=== PATIENT | female | born 1960 | race Caucasian/White ===

== ENCOUNTER 2018-12-12 10:30 | Day surgery (SDC) | payer BC ==
--- OUTSIDE RECORDS SUMMARY | 2018-12-12 10:34 | XMS REPORT | Clinical Summary ---
:1960 Author Organization [facility] Address [address] [place] [address] Care Team Providers Name Role Phone Luisa Gilliam MD Primary Care Provider Unavailable Allergies Active Allergy Reactions Severity Noted Date Comments Codeine Anxiety, Itching, Palpitations, High Shortness Of Breath Iodine Anaphylaxis, GI Intolerance, High Hives, Shortness Of Breath Latex, Natural Rubber Dermatitis, Itching, Rash, Low Swelling Metformin GI Intolerance 09/29/2017 Shellfish Derived Anaphylaxis, Diarrhea, GI High Intolerance, Hives, Shortness Of Breath, Swelling Medications Medication Sig Dispensed Refills Start End Date Status Date FLUTICASONE 2 sprays once a 0 Active PROPIONATE (FLONASE day ALLERGY RELIEF NASL) cetirizine (ZyrTEC) 1 tablet once a 0 Active 10 MG tablet day blood-glucose meter Use as directed 1 each 0 Active misc 8 lancets 33 gauge misc Test blood 200 each 1 Active sugar twice a 8 day blood sugar Test blood 200 strip 1 Active diagnostic strips sugar twice a 8 (glucose blood) strip day test strips atorvastatin TAKE 1 90 tablet 1 Active (LIPITOR) 40 MG TABLET(20 MG) 8 tabletIndications: BY MOUTH DAILY Mixed hyperlipidemia dulaglutide INJECT 1 12 Syringe 0 Active (TRULICITY) 1.5 SYRINGE OF 1.5 9 mg/0.5 mL pen MG UNDER THE injectorIndications: SKIN EVERY Type 2 diabetes WEDNESDAY. mellitus with complication, without long-term current use of insulin (HCC) glimepiride (AMARYL) TAKE 1 TABLET(2 180 tablet 0 Active 2 MG MG) BY MOUTH 9 tabletIndications: TWICE DAILY Type 2 diabetes WITH MEALS mellitus with complication, without long-term current use of insulin ([facility]) DUREZOL 0.05 % drops 1 drop twice a 0 09/29/19 Discontinued day 8 19 atorvastatin Take 1 tablet 30 tablet 1 12/12/19 Discontinued (LIPITOR) 20 MG (20 mg total) 8 18 tabletIndications: by mouth daily. Mixed hyperlipidemia glimepiride (AMARYL) Take 1 tablet 60 tablet 1 12/12/19 Discontinued 2 MG (2 mg total) by 8 18 tabletIndications: mouth 2 (two) Type 2 diabetes times a day mellitus with with meals. hyperglycemia, without long-term current use of insulin ([facility]), Hyperglycemia dulaglutide 1.5 Inject SQ 4 Syringe 1 01/04/20 Discontinued mg/0.5 mL pen weekly every 8 18 injectorIndications: Wednesday Type 2 diabetes mellitus with hyperglycemia, without long-term current use of insulin ([facility]) docusate sodium Take 1 capsule 0 01/04/20 Discontinued (COLACE) 100 MG (100 mg total) 8 capsuleIndications: by mouth 2 Drug-induced (two) times a constipation day. Use 2 tab daily polycarbophil Take 1 tablet 0 09/29/19 Discontinued (FIBERCON) 625 mg (625 mg total) 8 tabletIndications: by mouth daily. Drug-induced Follow constipation instruction on box atorvastatin TAKE 1 90 tablet 0 01/04/20 Discontinued (LIPITOR) 20 MG TABLET(20 MG) 8 18 tabletIndications: BY MOUTH DAILY Mixed hyperlipidemia glimepiride (AMARYL) TAKE 1 TABLET(2 180 tablet 0 03/09/20 Discontinued 2 MG MG) BY MOUTH 8 18 tabletIndications: TWICE DAILY Type 2 diabetes WITH MEALS mellitus with hyperglycemia, without long-term current use of insulin ([facility]), Hyperglycemia dulaglutide 1.5 Inject SQ 12 Syringe 0 04/08/20 Discontinued mg/0.5 mL pen weekly every 8 18 injectorIndications: Wednesday Type 2 diabetes mellitus with hyperglycemia, without long-term current use of insulin ([facility]) meloxicam (MOBIC) 7.5 1 tab twice /d 28 tablet 0 05/17/20 Discontinued mg tabletIndications: for 14 days 8 18 Sternoclavicular joint pain, right atorvastatin TAKE 1 90 tablet 0 05/17/20 Discontinued (LIPITOR) 20 MG TABLET(20 MG) 8 18 tabletIndications: BY MOUTH DAILY Mixed hyperlipidemia glimepiride (AMARYL) TAKE 1 TABLET(2 180 tablet 0 09/29/19 Discontinued 2 MG MG) BY MOUTH 8 19 tabletIndications: TWICE DAILY Type 2 diabetes WITH MEALS mellitus with hyperglycemia, without long-term current use of insulin ([facility]), Hyperglycemia TRULICITY 1.5 mg/0.5 INJECT 1 6 mL 0 07/06/19 Discontinued mL pen SYRINGE EVERY 8 injectorIndications: Type 2 diabetes mellitus with hyperglycemia, without long-term current use of insulin ([facility]) dulaglutide INJECT 1 4 Syringe 1 08/20/19 Discontinued (TRULICITY) 1.5 SYRINGE EVERY 9 19 mg/0.5 mL pen injectorIndications: Type 2 diabetes mellitus with hyperglycemia, without long-term current use of insulin ([facility]) dulaglutide INJECT 1 2 mL 0 08/31/19 Discontinued (TRULICITY) 1.5 SYRINGE OF 1.5 9 19 mg/0.5 mL pen MG UNDER THE injectorIndications: SKIN EVERY Type 2 diabetes WEDNESDAY. mellitus with hyperglycemia, without long-term current use of insulin ([facility]) dulaglutide INJECT 1 4 Syringe 0 09/29/19 Discontinued (TRULICITY) 1.5 SYRINGE OF 1.5 9 19 mg/0.5 mL pen MG UNDER THE injectorIndications: SKIN EVERY Type 2 diabetes WEDNESDAY. mellitus with hyperglycemia, without long-term current use of insulin ([facility]) glimepiride (AMARYL) TAKE 1 TABLET(2 180 tablet 0 11/18/19 Discontinued 2 MG MG) BY MOUTH 9 19 tabletIndications: TWICE DAILY Type 2 diabetes WITH MEALS mellitus with complication, without long-term current use of insulin ([facility]) montelukast Take 1 tablet 30 tablet 2 10/29/19 (SINGULAIR) 10 mg (10 mg total) 9 19 tabletIndications: by mouth Chronic seasonal nightly for 30 allergic rhinitis due days. to pollen predniSONE Take 1 tablet 5 tablet 0 10/04/19 (DELTASONE) 20 mg (20 mg total) 9 19 tablet by mouth daily for 5 days. amoxicillin (AMOXIL) Take 1 tablet 14 tablet 0 10/06/19 500 MG tablet (500 mg total) 9 19 by mouth 2 (two) times a day for 7 days. Active Problems Problem Noted Date Mixed hyperlipidemia 11/03/2017 Acute seasonal allergic rhinitis due to pollen 09/29/2017 Type 2 diabetes mellitus with hyperglycemia 09/29/2017 Overview: Diagnosed in 2012 after a sinus infection ,did not tolerate metformin ,treated with januvia which was stopped due to good control but pt never followed up Retinopathy of left eye 09/29/2017 Overview: Followed in [place] [facility] colonoscopy 09/29/2017 Uveitis 09/29/2017 Encounters Date Type Specialty Care Team Description 12/09/2018 Orders Only Internal Medicine Provider, MD Adonis 12/06/2018 Telephone Internal Medicine Luisa Gilliam MD 12/05/2018 Telephone Family Medicine Luisa Gilliam MD 11/17/2018 Refill Internal Medicine M[place], Type 2 diabetes mellitus MD Luisa with complication, without long-term current use of insulin ([facility]) 09/28/2018 Lab Lab [place], Type 2 diabetes mellitus MD Luisa with hyperglycemia, without long-term current use of insulin ([facility]) 09/28/2018 Office Visit Internal Medicine Mane, Type 2 diabetes mellitus with complication, without long-term current use of insulin ([facility]) ( Primary Dx); MD Luisa Acute non-recurrent maxillary sinusitis; Chronic seasonal allergic rhinitis due to pollen 08/31/2018 Refill Internal Medicine Kylah Type 2 diabetes mellitus NORA Domínguez with hyperglycemia, without long-term current use of insulin ([facility]) 08/20/2018 Refill Internal Medicine [place] Type 2 diabetes mellitus MD Luisa with hyperglycemia, without long-term current use of insulin ([facility]) 07/06/2018 Refill Internal Medicine Kylah Type 2 diabetes mellitus NORA Domínguez with hyperglycemia, without long-term current use of insulin ([facility]) 07/03/2018 Refill Internal Medicine [place], Type 2 diabetes mellitus MD Luisa with hyperglycemia, without long-term current use of insulin ([facility]) 05/25/2018 Orders Only Internal Medicine ProviderAdonis MD 05/17/2018 Office Visit Internal Medicine [facility], Routine general medical examination at a health care facility (Primary Dx); MD Luisa Need for Tdap vaccination; Osteopenia, unspecified location; Post-menopausal 04/08/2018 Refill Internal Medicine [facility], Type 2 diabetes mellitus MD Luisa with hyperglycemia, without long-term current use of insulin ([facility]) 04/07/2018 Hospital Encounter Radiology [facility], Screening breast MD Luisa examination 03/31/2018 Telephone Internal Medicine [facility], MD Luisa 03/09/2018 Refill Internal Medicine [facility], Mixed hyperlipidemia; MD Luisa Type 2 diabetes mellitus with hyperglycemia, without long- term current use of insulin; Hyperglycemia 01/03/2018 Office Visit Internal Medicine [facility], Sternoclavicular joint pain, right (Primary Dx); MD Luisa Type 2 diabetes mellitus with hyperglycemia, without long- term current use of insulin; Mixed hyperlipidemia; Screening breast examination 01/03/2018 Orders Only Internal Medicine Adonis Lee MD 12/31/2017 Lab Lab [facility], Type 2 diabetes mellitus with hyperglycemia, without long-term current use of insulin; MD Luisa Mixed hyperlipidemia 12/11/2017 Refill Internal Medicine [facility], Mixed hyperlipidemia; MD Luisa Type 2 diabetes mellitus with hyperglycemia, without long- term current use of insulin; Hyperglycemia after 12/11/2017 Immunizations Name Dates Previously Given Next Due Influenza Trivalent 06/04/2018 Tdap 05/17/2018 Zoster Vaccine Recombinant 06/04/2018 Family History Medical History Relation Name Comments COPD Father Karl Price Smoker Heart disease Father Karl Price Stroke, Open Heart Surgery Hypertension Father Karl Price Vision loss Father Karl Price Glaucoma Tuberculosis Maternal Grandfather Oral Crooks Cancer Maternal Grandmother Blake Crooks Lung Cancer Cancer Mother Ann Price Ovarian Cancer Hearing loss Mother Ann Price Right ear Miscarriages / Stillbirths Mother Ann Price Cancer Paternal Grandfather Garfield Price Stomach Cancer Heart disease Paternal Grandmother Colette Price Heart Disease; Hardening of Arteries Relation Name Status Comments Father Karl Price Maternal Grandfather Oral Crooks Maternal Grandmother Blake Crooks Mother Ann Price Paternal Grandfather Garfield Price Paternal Grandmother Colette Price Social History Tobacco Use Types Packs/Day Years Used Date Never Smoker Smokeless Tobacco: Never Used Alcohol Use Drinks/Week oz/Week Comments Yes Rarely; Socially Sex Assigned at Date Recorded Not on file Job Start Date Occupation Industry Not on file Not on file Not on file Travel History Travel Start Travel End No recent travel history available. Last Filed Vital Signs Vital Sign Reading Time Taken Blood Pressure 111/74 09/28/2018 2:18 PM CDT Pulse 91 09/28/2018 2:18 PM CDT Temperature 36.8 C (98.3 F) 09/28/2018 2:18 PM CDT Respiratory Rate 16 09/28/2018 2:18 PM CDT Oxygen Saturation 97% 09/28/2018 2:18 PM CDT Inhaled Oxygen Concentration - - Weight 60.8 kg (134 lb) 09/28/2018 2:18 PM CDT Height 165.1 cm (5' 5") 09/28/2018 2:18 PM CDT Body Mass Index 22.3 09/28/2018 2:18 PM CDT Plan of Treatment Date Type Specialty Care Team Description 12/29/2018 Office Visit Internal Medicine Luisa Gilliam MD [address] [facility] [address] [place] [address] Health Maintenance Due Date Last Done Comments COLON CANCER SCREENING 01/05/2012 07/05/1997 SHINGLES VACCINES (#2) 08/05/2018 06/04/2018 URINE MICROALBUMIN 09/29/2018 09/29/2017 DIABETIC FOOT EXAM 10/07/2018 10/07/2017 INFLUENZA VACCINE 02/02/2019 06/04/2018, 06/04/2018 DIABETIC RETINAL EYE EXAM 10/08/2019 10/07/2017 BREAST CANCER SCREENING 04/07/2020 04/07/2018, 07/05/2013 Procedures Procedure Name Priority Date/Time Associated Diagnosis Comments OBTAIN MEDICAL RECORDS Routine 12/09/2018 COMPREHENSIVE METABOLIC Routine 09/28/2018 3:05 Type 2 diabetes Results for PANEL PM CDT mellitus with this procedure hyperglycemia, without are in the long-term current use results of insulin (HCC) section. HEMOGLOBIN A1C Routine 09/28/2018 3:05 Type 2 diabetes Results for PM CDT mellitus with this procedure hyperglycemia, without are in the long-term current use results of insulin (HCC) section. EYE EXAM Routine 05/25/2018 BONE DENSITY Routine 05/17/2018 12:37 Osteopenia, Results for PM VIDEO NEWS EDITOR unspecified location this procedure Post-menopausal are in the results section. MAMMO BREAST SCREEN Routine 04/07/2018 10:09 Screening breast Results for TOMOSYNTHESIS BILATERAL AM CDT examination this procedure are in the results section. XR STERNOCLAVICULAR Routine 01/03/2018 12:07 Sternoclavicular joint Results for JOINTS 4+ VWS PM CDT pain, right this procedure are in the results section. OBTAIN MEDICAL RECORDS Routine 01/03/2018 COMPREHENSIVE METABOLIC Routine 12/31/2017 8:58 Type 2 diabetes Results for PANEL AM CDT mellitus with this procedure hyperglycemia, without are in the long-term current use results of insulin section. LIPID PANEL Routine 12/31/2017 8:58 Mixed hyperlipidemia Results for AM CDT this procedure are in the results section. HEMOGLOBIN A1C Routine 12/31/2017 8:58 Type 2 diabetes Results for AM CDT mellitus with this procedure hyperglycemia, without are in the long-term current use results of insulin section. after 12/11/2017 Results Obtain medical records (12/09/2018)Only the most recent of2 resultswithin the time period is included. Narrative Performed At Hemoglobin A1c (09/28/2018 3:05 PM CDT)Only the most recent of2 resultswithin the time period is included. Hemoglobin A1C 7.5 (H) 4.8 - 5.6 % [facility] Comment: Prediabetes: 5.7 - 6.4 Diabetes: >6.4 Glycemic control for adults with diabetes: <7.0 Specimen Blood Narrative Performed At Performed at:01 - [facility] [address] [place], [place] [id number] Welfare Manager: Eitan Paz MD, Phone:[phone] Performing Organization Address City/State/Zipcode Phone Number [facility] Comprehensive metabolic panel (09/28/2018 3:05 PM CDT)Only the most recent of2 resultswithin the time period is included. Glucose 265 (H) 65 - 99 mg/dL [facility] BUN, whole blood 11 6 - 24 mg/dL [facility] Creatinine 0.87 0.57 - 1.00 mg/dL [facility] EGFR Non-Afr. [place] 75 >59 mL/min/1.73 [facility] EGFR 86 >59 mL/min/1.73 [facility] BUN/creatinine ratio 13 9 - 23 [facility] Sodium 136 134 - 144 mmol/L [facility] Potassium 4.2 3.5 - 5.2 mmol/L [facility] Chloride 96 96 - 106 mmol/L [facility] CO2 23 20 - 29 mmol/L [facility] Calcium 9.6 8.7 - 10.2 mg/dL [facility] Protein 7.6 6.0 - 8.5 g/dL [facility] Albumin, S 4.5 3.5 - 5.5 g/dL [facility] Globulin, total 3.1 1.5 - 4.5 g/dL [facility] Albumin/globulin ratio 1.5 1.2 - 2.2 [facility] Total bilirubin 0.5 0.0 - 1.2 mg/dL [facility] Alkaline phosphatase 187 (H) 39 - 117 IU/L [facility] AST 19 0 - 40 IU/L [facility] ALT 20 0 - 32 IU/L [facility] Specimen Blood Narrative Performed At Performed at: - [facility] [address] [place], [id number] Welfare Manager: Eitan Paz MD, Phone:[phone] Performing Organization Address City/State/[facility] Phone Number [facility] Eye exam (05/25/2018) Narrative Performed At Bone Density (05/17/2018 12:37 PM VIDEO NEWS EDITOR) Specimen Narrative Performed At EXAMINATION:BONE DENSITY HM [facility] CLINICAL HISTORY:M85.80 Other specified disorders of bone density and structureunspecified site, Z78.0 Asymptomatic menopausal state, osteopenia- post menauposal COMPARISON: The results of this study expressed as bone mineral density (BMD) were as follows: AP spine (L1-L4) BMD: 1.137 g/cm2 T-Score: -0.5 Previous: % change from prior BMD Dual Femur (Total Mean): BMD: 0.898 g/cm2 T-Score: -0.9 Previous:% change from prior BMD Dual femur FRAX: Risk factors: None. 10 year probability of fracture: 1.Major osteoporotic: 10.1% 2.Hip: 0.6% 3.Based on dual femur right neck BMD Impression: Bone mineral density values as above. A copy of this scans including a report detailing these results will follow. Note: The world health organization (WHO) has classified the patient's T-score as follows: Above (-1) as normal (-1) to (-2.5) as low (osteopenia) Below (-2.5) as abnormally low (osteoporosis, increased fracture risk) [facility]-[id number] Procedure Note Interface, Radiology Results Incoming - 05/17/2018 2:11 PM VIDEO NEWS EDITOR EXAMINATION: BONE DENSITY CLINICAL HISTORY: M85.80 Other specified disorders of bone density and structure unspecified site, Z78.0 Asymptomatic menopausal state, osteopenia- post menauposal COMPARISON: The results of this study expressed as bone mineral density (BMD) were as follows: AP spine (L1-L4) BMD: 1.137 g/cm2 T-Score: -0.5 Previous: % change from prior BMD Dual Femur (Total Mean): BMD: 0.898 g/cm2 T-Score: -0.9 Previous: % change from prior BMD Dual femur FRAX: Risk factors: None. 10 year probability of fracture: 1. Major osteoporotic: 10.1% 2. Hip: 0.6% 3. Based on dual femur right neck BMD Impression: Bone mineral density values as above. A copy of this scans including a report detailing these results will follow. Note: The world health organization (WHO) has classified the patient's T-score as follows: Above (-1) as normal (-1) to (-2.5) as low (osteopenia) Below (-2.5) as abnormally low (osteoporosis, increased fracture risk) [facility]-[id number] Performing Organization Address City/State/Zipcode Phone Number [facility] [address] [place] [address] Mammo Breast Screen Tomosynthesis Bilateral (04/07/2018 10:09 AM CDT) Specimen Narrative Performed At [facility] TOMOSYNTHESIS BILATERAL Computer-assisted detection was utilized for the interpretation of this exam. COMPARISON: None. TECHNIQUE: Bilateral digital screening mammogram with tomosynthesis was performedand interpreted using computer-assisted detection. CLINICAL HISTORY: The patient has no current palpable breast complaints. FINDINGS: Bilateral mammogram demonstrates the breast parenchyma to be scattered fibroglandular densities. LEFT:No specific features of malignancy. RIGHT: No specific features of malignancy. IMPRESSION: BI-RADS Category 2. Benign finding(s). Recommend comparison with physical exam and annual screening mammography. This facility is accredited by The [place] [employer] for Mammography. A negative x-ray report should not delay biopsy if a dominant or clinically suspicious mass is present. Not all cancers are identified by x-ray. [id number] Performing Organization Address [facility] Phone Number [facility] [address] [place] [address] XR Sternoclavicular Joints 4+ Vws (01/03/2018 12:07 PM CDT) Specimen Narrative Performed At EXAMINATION:XR STERNOCLAVICULAR JOINTS 4VWS [facility] CLINICAL HISTORY: M25.511 Pain in right shoulder, R sternoclavicular joint pain COMPARISON:None. FINDINGS: Bones are demineralized. No acute osseous abnormality or malalignment is noted. IMPRESSION: As above [id number] Procedure Note Interface, Radiology Results Incoming - 01/03/2018 12:23 PM CDT EXAMINATION: XR STERNOCLAVICULAR JOINTS 4 VWS CLINICAL HISTORY: M25.511 Pain in right shoulder, R sternoclavicular joint pain COMPARISON: None. FINDINGS: Bones are demineralized. No acute osseous abnormality or malalignment is noted. IMPRESSION: As above [id number] Performing Organization Address [facility] Phone Number [facility] [address] [place] [address] Lipid panel (12/31/2017 8:58 AM CDT) Cholesterol 180 100 - 199 mg/dL [facility] Triglycerides 139 0 - 149 mg/dL [facility] HDL cholesterol 51 >39 mg/dL [facility] VLDL cholesterol bijan 28 5 - 40 mg/dL [facility] LDL cholesterol calculated 101 (H) 0 - 99 mg/dL [facility] Non-HDL cholesterol 129 0 - 129 mg/dL [facility] Specimen Blood Narrative Performed At Performed at:01 - [facility] [address] [place], [id number] Welfare Manager: Eitan Paz MD, Phone:[phone] Performing Organization Address City/State/Zipcode Phone Number [facility] after 12/11/2017 Advance Directives Patient has advance care planning documents on file. For more information, please contact:Link Velazquez[address] [place] [id number]
[2018-12-12] MEDS ORDERED: EPINEPHRINE/PF 1 MG/ML AMP ONE ×2 (11:01→11:02)
[2018-12-12] MEDS ORDERED: NS 0.9% VIAL 10 ML ONE (11:01)
[2018-12-12] MEDS ORDERED: DUOVISC 1 KIT OPTH ONE (11:02)
[2018-12-12] MEDS ORDERED: BALANCED SALT IRRIG PLAIN 500 ML BTL IRR ONE (11:02)
[2018-12-12] MEDS: CYCLOPENTOLATE 1% OPTH 2 ML ONE ×3 (11:05→11:15)
[2018-12-12] MEDS: PHENYLEPHRINE 10% OPTH 5ML ONE ×3 (11:05→11:15)
[2018-12-12] MEDS ORDERED: NA CHLORIDE 0.9% 500 ML ONE (11:17)
[2018-12-12] MEDS: TETRACAINE HCL 0.5% 4ML OPTH ONE ×2 (11:23→11:48)
[2018-12-12] MEDS: BUPIVACAINE 0.25% PF 10 ML VIAL ONE ×2 (11:23→11:49)
[2018-12-12] MEDS: LIDOCAINE 2% MPF 5 ML VIAL ONE ×2 (11:23→11:49)
[2018-12-12] MEDS ORDERED: PROPOFOL 200 MG/20 ML VIAL IV ONE (11:28)
[2018-12-12] MEDS ORDERED: LIDOCAINE 2% MPF 5 ML VIAL ONE (11:28)
[2018-12-12] MEDS ORDERED: MOXIFLOXACIN HCL 10 DROPS/ML **OR USE OPTH ONE (12:39)
--- NOTE | 2018-12-12 13:25 | P.BOP ---
Preoperative diagnosis: Nuclear sclerotic and posterior subcapsular cataract OS Postoperative diagnosis: Same Primary procedure: Phacoemulsification with IOL OS Estimated blood loss: None Anesthesia: Local (Subtenon's infusion with anesthesia for cataract surgery) Complications: None Implants: [id number] +24.0 Transferred to: Other (Day surgery) Condition: Good
--- NOTE | 2018-12-12 23:34 | OP ---
Date of Procedure: 12/12/2018 Surgeon: Waleska Hill MD Anesthesiologist: Ally Bui CRNA and Geoffrey Arcos MD. Preoperative Diagnoses: Nuclear sclerotic cataract and posterior subcapsular cataract, left eye. Operation Performed: Phacoemulsification with intraocular lens implant, left eye. Anesthesia: Per cataract surgery. Complications: None. Description Of Procedure: In day surgery, the patient was prepped with Betadine and draped. A conju nctival incision was made in the inferior nasal quadrant with Zaire scissors. A sub-Tenon block c onsisting of a 1:1 mixture of 2% Xylocaine and 0.25% bupivacaine was placed through the conjunctival incision with a blunt cannula. A Honan balloon was placed over the eye and the patient was transferr ed to the operating room. In the operating room the patient was prepped and draped in the usual sterile fashion for ophthalmic surgery. A lid speculum was placed in the left eye. Two paracentesis sites were made superiorly and inferiorly in the limbal cornea. Viscoat was placed in the anterior chamber and a crescent blade wa s used to make a corneal groove and tunnel, and a keratome was used to enter the anterior chamber. P rovisc was placed in the anterior chamber and a 360 degree capsulotomy was performed with a cystitome . The lens was hydrodissected with BSS and rotated freely. The lens was removed with a stop and cho p technique. 6.12 phaco CDE was used to remove the lens. Residual cortex was removed with the irrig ation and aspiration. Provisc was placed in the capsular bag. A ZCB00 +24.0 lens was placed in the capsular bag without complications. Irrigation and aspiration were used to remove residual viscoelas tic. The paracentesis sites were hydrated with BSS. The wound and paracentesis sites were inspected and found to be watertight. Vigamox 0.07 cc was placed intracamerally at the end of the procedure. The eye was irrigated with balanced salt solution. The eye was patched with a soft cotton patch and Leroy metal shield. The patient was returned to day surgery in good condition. Comments: The lens was hydrodissected rather than hydrodelineated, and 1:5000 epinephrine was placed in the anterior chamber prior to Viscoat. Discharge Instructions: Ms. Ayon is discharged to home in good condition and is to follow up with Amanuel Hill in the morning. GARRET/SIXTO Voice ID: [id number] Report ID: [id number]
== END 2018-12-12 13:00 | disposition home or self-care (01) ==
LOC: OR 10:30
PROVIDERS: ATTEND Ophthalmology Retina Specialist
PROC: 08RK3JZ Replacement of Left Lens with Synthetic Substitute, Percutaneous Approach (ICD-10-PCS; principal; 2018-12-12 11:00)
DX: H25.12 Age-related nuclear cataract, left eye (principal); H25.042 Posterior subcapsular polar age-related cataract, left eye; E11.9 Type 2 diabetes mellitus without complications; E78.00 Pure hypercholesterolemia, unspecified; Z79.899 Other long term (current) drug therapy
CPT/HCPCS: 82962; J0171; J2704